=== PATIENT | female | born 1995 | race Caucasian/White ===

== ENCOUNTER 2021-09-18 16:17 | Day surgery (SDC) | payer BC ==
[2021-09-18] MEDS ORDERED: hydrALAZINE 20 MG/ML VIAL SLOW IVP PRN (17:01)
[2021-09-18 17:36] VITALS: BMI 31.3
[2021-09-18 17:51] LABS: #Eosinphils 0.1 10x3/uL (0.0-0.5); #Monocytes 0.9 10x3/uL (0.0-1.1); #Neutrophils 7.7 10x3/uL (1.5-8.4); %Basophils 0.3 % (0.0-2.0); %Eosinophils 0.5 % (0.0-6.0); %Lymphocytes 18.1 % (18.0-47.0); %Neutrophils 72.7 % (40.0-75.0); Hemoglobin 12.5 g/dL (12.0-15.5); Mean Corpuscular HGB CONC 34.4 g/dL (32.0-36.0); Mean Corpuscular Hemoglobin 32.5 pg (27.0-33.0); Mean Corpuscular Volume 94.3 fl (81.6-98.3); Mean Platelet Volume 9.6 fl (7.4-10.4); Platelet Count 212 10x3/uL (150-450); RBC Distribution Width 12.9 % (11.5-14.5); Red Blood Cell (RBC) Count 3.85 10x6/uL (3.90-5.03); White Blood Cell (WBC) Count 10.6 10x3/uL (3.5-10.5)
[2021-09-18 18:05] LABS: Anion Gap 13 mmol/L (10-20); BUN (Urea Nitrogen) 14 mg/dL (7.0-18.7); Calc. Creatinine Clearance 160 mL/min (70-130); Carbon Dioxide 22 mmol/L (22-29); Chloride 106 mmol/L (98-107); Potassium 4.1 mmol/L (3.5-5.1); Sodium 137 mmol/L (136-145)
[2021-09-18 18:06] LABS: ALT (SGPT) 15 U/L (8-55); AST (SGOT) 21 U/L (5-34); Albumin 3.5 g/dL (3.5-5.0); Alkaline Phosphatase 175 U/L (40-110); Bilirubin, Total 0.3 mg/dL (0.2-1.2); Calcium 9.2 mg/dL (7.8-10.44); Estimated GFR 110; Globulin 3.1 g/dL (2.4-3.5); Glucose 68 mg/dL (70-105); Protein, Total 6.6 g/dL (6.0-8.3)
[2021-09-18 18:27] LABS: Fetal Membranes Rupture No Membranes Rupture (No Rupture)
== END 2021-09-18 19:04 | disposition home or self-care (01) ==
LOC: CSHLD/OP 16:17
PROVIDERS: ATTEND Obstetrics & Gynecology
DX: O99.891 Other specified diseases and conditions complicating pregnancy (principal); R03.0 Elevated blood-pressure reading, without diagnosis of hypertension; Z3A.38 38 weeks gestation of pregnancy; Z88.8 Allergy status to other drugs, medicaments and biological substances
CPT/HCPCS: 80053; 82570; 84112; 84156; 85025; 99283

== ENCOUNTER 2021-09-20 10:50 | Outpatient (CLI) | payer BC | END 2021-09-20 10:51 | disposition home or self-care (01) | LOC: CSHLAB 10:50 | PROVIDERS: ATTEND Obstetrics & Gynecology | DX: Z20.822 Contact with and (suspected) exposure to COVID-19 (principal) | CPT/HCPCS: 87811 ==

== ENCOUNTER 2021-09-23 19:15 | Inpatient (IN) | payer BC ==
[2021-09-23] MEDS ORDERED: hydrALAZINE 20 MG/ML VIAL SLOW IVP PRN (19:31)
[2021-09-23] MEDS ORDERED: Lidocaine 1% (PF) 30 ML VIAL SC PRN (19:31)
[2021-09-23] MEDS ORDERED: Ondansetron PF 4 MG/2 ML Vial IVP PRN (19:31)
[2021-09-23] MEDS ORDERED: NS w/ Oxytocin 30 units 500 ML IV SCH ×2 (19:31)
[2021-09-23] MEDS ORDERED: Misoprostol 100 MCG TAB VAG SCH ×2 (19:31)
[2021-09-23] MEDS ORDERED: Promethazine HCl 25 MG/ML VIAL IM PRN (19:31)
[2021-09-23] MEDS ORDERED: Ibuprofen 800 MG TAB PO PRN (19:31)
[2021-09-23] MEDS ORDERED: Butorphanol Tartrate 1 MG/ML VIAL SLOW IVP PRN (19:31)
[2021-09-23] MEDS ORDERED: HYDROcodone/Acetaminophen 5/325 mg Tablet PO PRN ×2 (19:31)
[2021-09-23 19:54] VITALS: BMI 31.3
[2021-09-23 20:48] LABS: Hemoglobin 11.8 g/dL (12.0-15.5); Mean Corpuscular HGB CONC 35.8 g/dL (32.0-36.0); Mean Corpuscular Volume 92.2 fl (81.6-98.3); Mean Platelet Volume 9.6 fl (7.4-10.4); Platelet Count 180 10x3/uL (150-450); Red Blood Cell (RBC) Count 3.58 10x6/uL (3.90-5.03); White Blood Cell (WBC) Count 9.9 10x3/uL (3.5-10.5)
[2021-09-23 20:58] LABS: ALT (SGPT) 12 U/L (8-55); AST (SGOT) 17 U/L (5-34); Albumin 3.2 g/dL (3.5-5.0); Alkaline Phosphatase 155 U/L (40-110); Anion Gap 14 mmol/L (10-20); BUN (Urea Nitrogen) 11 mg/dL (7.0-18.7); Bilirubin, Total 0.3 mg/dL (0.2-1.2); Calc. Creatinine Clearance 150 mL/min (70-130); Calcium 8.6 mg/dL (7.8-10.44); Carbon Dioxide 21 mmol/L (22-29); Chloride 106 mmol/L (98-107); Estimated GFR 102; Globulin 2.9 g/dL (2.4-3.5); Glucose 163 mg/dL (70-105); Potassium 3.6 mmol/L (3.5-5.1); Protein, Total 6.1 g/dL (6.0-8.3); Sodium 137 mmol/L (136-145)
[2021-09-23 21:05] LABS: Syphilis Antibody Nonreactive (Nonreactive); Syphilis Antibody Index 0.02 S/CO (<1.00 Non-Reactive)
[2021-09-23 21:16] LABS: Hep B Surf Ag Non-Reactive S/CO (NonReactive)
[2021-09-23 21:17] LABS: HBSAg Index 0.29 S/CO (0-0.99)
[2021-09-23] MEDS: Lactated Ringer's 1,000 ML IV SCH (21:42)
[2021-09-24] MEDS ORDERED: Fentanyl 2 mcg/Bup 0.1% Cadd 100 ML ONE ×2 (04:28→12:16)
[2021-09-24] MEDS ORDERED: Acetaminophen 325 MG TAB PO PRN (06:25)
[2021-09-24] MEDS ORDERED: Moisturizing Cream (Eucerin) 113 GM JAR TOP PRN (06:25)
[2021-09-24] MEDS ORDERED: Lactated Ringer's 500 ML IV PRN (06:25)
[2021-09-24] MEDS ORDERED: Promethazine HCl 25 MG/ML VIAL IM PRN (06:25)
[2021-09-24] MEDS ORDERED: diphenhydrAMINE 50 MG/ML VIAL IVP PRN (06:25)
[2021-09-24] MEDS ORDERED: Ondansetron PF 4 MG/2 ML Vial IVP PRN ×2 (06:25→17:10)
[2021-09-24] MEDS ORDERED: Naloxone HCl 0.4 mg/ml Vial IVP PRN ×2 (06:25)
[2021-09-24] MEDS ORDERED: ePHEDrine Sulfate 50 MG/10 ML VIAL SLOW IVP PRN (06:25)
[2021-09-24] MEDS ORDERED: Fentanyl 2 mcg/Bupivacaine 0.1% Cassette 100 ML EPIDURAL SCH (06:30)
[2021-09-24] MEDS ORDERED: Communication Order-Pharmacy FS SCH (06:30)
[2021-09-24] MEDS ORDERED: Fentanyl 100 MCG/2 ML VIAL ONE (08:37)
[2021-09-24] MEDS ORDERED: Methylergonovine 0.2 MG/ML VIAL ONE ×2 (14:36→17:24)
[2021-09-24] MEDS ORDERED: diphenhydrAMINE 25 MG CAP PO PRN (17:10)
[2021-09-24] MEDS ORDERED: Preparation H Ointment 28 GM TUBE PR PRN (17:10)
[2021-09-24] MEDS ORDERED: HYDROcodone/Acetaminophen 5/325 mg Tablet PO PRN (17:10)
[2021-09-24] MEDS ORDERED: Bisacodyl 10 MG SUPP PR PRN (17:10)
[2021-09-24] MEDS ORDERED: Milk Of Magnesia 30 ML UDCUP PO PRN (17:10)
[2021-09-24] MEDS ORDERED: Lanolin Ointment 7 GM TUBE TOP PRN (17:10)
[2021-09-24] MEDS ORDERED: hydrALAZINE 20 MG/ML VIAL SLOW IVP PRN (17:10)
[2021-09-24] MEDS ORDERED: Benzocaine-Menthol 82.5 ML CAN TOP PRN (17:10)
[2021-09-24] MEDS ORDERED: Misoprostol 200 MCG TAB ONE ×2 (17:24→17:28)
[2021-09-24] MEDS ORDERED: Tranexamic Acid 1,000 MG/10 ML VIAL ONE (17:29)
[2021-09-24] MEDS ORDERED: Ferrous Sulfate 325 MG TAB PO SCH (17:30)
[2021-09-24] MEDS ORDERED: Tranexamic Acid 1,000 MG in Sodium Chloride 0.9% 100 ML IVPB SCH (18:00)
[2021-09-24] MEDS ORDERED: Ibuprofen 800 MG TAB PO SCH (18:00)
[2021-09-24] MEDS ORDERED: Misoprostol 100 MCG TAB PR SCH (18:00)
[2021-09-24 18:07] LABS: Hemoglobin 10.7 g/dL (12.0-15.5); Mean Corpuscular HGB CONC 34.1 g/dL (32.0-36.0); Mean Corpuscular Hemoglobin 32.3 pg (27.0-33.0); Mean Corpuscular Volume 94.9 fl (81.6-98.3); Mean Platelet Volume 9.6 fl (7.4-10.4); Platelet Count 179 10x3/uL (150-450); RBC Distribution Width 13.1 % (11.5-14.5); Red Blood Cell (RBC) Count 3.31 10x6/uL (3.90-5.03); White Blood Cell (WBC) Count 13.6 10x3/uL (3.5-10.5)
[2021-09-24] MEDS ORDERED: Misoprostol 200 MCG TAB PR SCH (18:15)
[2021-09-24] MEDS: HYDROcodone/Acetaminophen 5/325 mg Tablet PO PRN (19:09)
[2021-09-24] MEDS: Docusate 100 MG CAP PO SCH (23:42)
[2021-09-24] MEDS: Lactated Ringer's 1,000 ML IV SCH (23:43)
[2021-09-25] MEDS: HYDROcodone/Acetaminophen 5/325 mg Tablet PO PRN ×3 (04:44→17:35)
[2021-09-25 05:11] LABS: Hemoglobin 9.4 g/dL (12.0-15.5); Mean Corpuscular HGB CONC 35.3 g/dL (32.0-36.0); Mean Corpuscular Hemoglobin 32.2 pg (27.0-33.0); Mean Corpuscular Volume 91.1 fl (81.6-98.3); Mean Platelet Volume 9.3 fl (7.4-10.4); Platelet Count 148 10x3/uL (150-450); RBC Distribution Width 13.7 % (11.5-14.5); Red Blood Cell (RBC) Count 2.92 10x6/uL (3.90-5.03); White Blood Cell (WBC) Count 12.9 10x3/uL (3.5-10.5)
[2021-09-25] MEDS: Ibuprofen 800 MG TAB PO SCH ×3 (06:15→21:03)
[2021-09-25] MEDS: Prenatal Vitamin 1 TAB PO SCH (09:41)
[2021-09-25] MEDS: Docusate 100 MG CAP PO SCH ×2 (09:42→21:03)
[2021-09-25] MEDS: Ferrous Sulfate 325 MG TAB PO SCH ×2 (09:42→17:36)
[2021-09-25] MEDS ORDERED: Boostrix 0.5 ML (Tdap) VIAL IM ONE (17:10)
[2021-09-26] MEDS: Ibuprofen 800 MG TAB PO SCH ×2 (05:15→13:08)
[2021-09-26] MEDS: Docusate 100 MG CAP PO SCH (08:16)
[2021-09-26] MEDS: Prenatal Vitamin 1 TAB PO SCH (08:16)
[2021-09-26] MEDS: Ferrous Sulfate 325 MG TAB PO SCH (08:16)
[2021-09-26 11:37] VITALS: BP 102/63; TEMP 97.8
== END 2021-09-26 17:00 | disposition home or self-care (01) | DRG 806 ==
LOC: CSHLD 19:19 → CSHPP 09-25 00:15
PROVIDERS: ADMIT Obstetrics & Gynecology; ATTEND Obstetrics & Gynecology
PROC: 10E0XZZ Delivery of Products of Conception, External Approach (ICD-10-PCS; principal; 2021-09-24)
PROC: 3E0334Z Introduction of Serum, Toxoid and Vaccine into Peripheral Vein, Percutaneous Approach (ICD-10-PCS; 2021-09-24)
PROC: 3E0P7VZ Introduction of Hormone into Female Reproductive, Via Natural or Artificial Opening (ICD-10-PCS; 2021-09-24)
PROC: 30233N1 Transfusion of Nonautologous Red Blood Cells into Peripheral Vein, Percutaneous Approach (ICD-10-PCS; 2021-09-24)
PROC: 10907ZC Drainage of Amniotic Fluid, Therapeutic from Products of Conception, Via Natural or Artificial Opening (ICD-10-PCS; 2021-09-24)
PROC: 0W8NXZZ Division of Female Perineum, External Approach (ICD-10-PCS; 2021-09-24)
DX: O26.893 Other specified pregnancy related conditions, third trimester (principal); D62 Acute posthemorrhagic anemia; Z37.0 Single live birth; Z67.11 Type A blood, Rh negative; Z3A.39 39 weeks gestation of pregnancy; Z88.8 Allergy status to other drugs, medicaments and biological substances; O70.1 Second degree perineal laceration during delivery; Z20.822 Contact with and (suspected) exposure to COVID-19; O69.81X0 Labor and delivery complicated by cord around neck, without compression, not applicable or unspecified; O72.2 Delayed and secondary postpartum hemorrhage; O90.81 Anemia of the puerperium
CPT/HCPCS: 36415; 36430; 51702; 80053; 85027; 85461; 86780; 86850; 86870; 86900; 86901; 87340; 90384; 96372; J0595; J2405; J2590; J7120; P9016

== ENCOUNTER 2023-09-12 08:00 | Outpatient (CLI) | payer BC | END 2023-09-12 08:01 | disposition home or self-care (01) | LOC: CSHULT 08:00 | PROVIDERS: ATTEND Obstetrics & Gynecology | DX: N64.4 Mastodynia (principal) ==